=== PATIENT | male | born 1995 | race American Indian/Alaskan Native ===

== ENCOUNTER 2018-06-28 17:11 | Emergency (ER) | payer OTHER ==
[2018-06-28 17:41] VITALS: BP 138/86
[2018-06-28] MEDS ORDERED: IBUPROFEN PO ONE (21:31)
[2018-06-28] MEDS ORDERED: DELTASONE PO ONE (21:31)
[2018-06-28] MEDS ORDERED: PROVENTIL IH ONE ×2 (21:31→22:44)
[2018-06-28] MEDS ORDERED: BENADRYL PO ONE (21:31)
--- NOTE | 2018-06-28 22:34 | XRay Report ---
PROCEDURE: XR CHEST ROUTINE 2V TECHNIQUE: PA and lateral views of the chest HISTORY: cough fever COMPARISONS: None available FINDINGS: Cardiomediastinal silhouette is unremarkable. No pulmonary infiltrate, effusion, or pneumothorax. No acute osseous abnormality. IMPRESSION: No radiographic evidence of acute abnormality. This document is electronically signed by Roopa Kenyon MD., June 28 2018 10:32:23 PM ET
--- NOTE | 2018-06-28 22:49 | Emergency Department Report ---
- General Chief Complaint: Dyspnea/Respdistress Stated Complaint: SOB/SORE THROAT/COUGHING Time Seen by Provider: 06/28/18 21:31 Source: patient Mode of arrival: Ambulatory Limitations: No Limitations - History of Present Illness Initial Comments: Patient is a 22-year-old -[place] male with a history of bronchitis and presents for cough fever chills cough is productive green thick, symptoms are exacerbated by environmental exposure symptoms are relieved by nothing. MD Complaint: cough, sore throat, rhinorrhea, nasal congestion Onset/Timin -: week(s) Severity: moderate Severity scale (0 -10): 5 Consistency: constant Improves With: nothing Worsens With: activity Associated Symptoms: fever, chills, rhinorrhea, nasal congestion, sore throat, cough, shortness of breath Treatments Prior to Arrival: none - Related Data Previous Rx's Medication Instructions Recorded Last Taken Type Cetirizine HCl [ZyrTEC] 10 mg PO QAM 14 Days #14 capsule 04/20/18 Unknown Rx Fluticasone [Flonase] 1 spray NS QDAY 14 Days #1 bottle 04/20/18 Unknown Rx Ibuprofen [Motrin] 800 mg PO Q8HR PRN #12 tablet 04/20/18 Unknown Rx Ondansetron [Zofran ODT TAB] 8 mg PO Q8HR PRN #12 tab.rapdis 04/20/18 Unknown Rx Oseltamivir [Tamiflu] 75 mg PO BID 5 Days #10 cap 04/20/18 Unknown Rx ALBUTEROL NEB's [Proventil 0.083% 2.5 mg IH Q4H PRN #1 ml 06/28/18 Unknown Rx NEBS] Azithromycin [Zithromax Z-LEO] 250 mg PO DAILY #6 tab 06/28/18 Unknown Rx Benzonatate [Tessalon Perle] 100 mg PO TID PRN #30 capsule 06/28/18 Unknown Rx Ibuprofen 800 mg PO TID PRN #30 tablet 06/28/18 Unknown Rx predniSONE [Deltasone] 40 mg PO QDAY 5 Days #10 tab 06/28/18 Unknown Rx Allergies Allergy/AdvReac Type Severity Reaction Status Date / Time No Known Allergies Allergy Verified 06/28/18 17:35 ED Review of Systems ROS: Stated complaint: SOB/SORE THROAT/COUGHING Other details as noted in HPI Constitutional: denies: chills, fever Eyes: denies: eye pain, eye discharge, vision change ENT: ear pain, throat pain, congestion Respiratory: cough, wheezing. denies: shortness of breath Cardiovascular: denies: chest pain, palpitations Endocrine: no symptoms reported Gastrointestinal: denies: abdominal pain, nausea, diarrhea Genitourinary: denies: urgency, dysuria Musculoskeletal: denies: back pain, joint swelling, arthralgia Skin: denies: rash, lesions Neurological: denies: headache, weakness, paresthesias Psychiatric: denies: anxiety, depression Hematological/Lymphatic: denies: easy bleeding, easy bruising ED Past Medical Hx - Past Medical History Hx Asthma: Yes (childhood) - Social History Smoking Status: Current Every Day Smoker Substance Use Type: Alcohol, Marijuana - Medications Home Medications: Home Medications Medication Instructions Recorded Confirmed Last Taken Type Cetirizine HCl [ZyrTEC] 10 mg PO QAM 14 Days #14 capsule 04/20/18 Unknown Rx Fluticasone [Flonase] 1 spray NS QDAY 14 Days #1 bottle 04/20/18 Unknown Rx Ibuprofen [Motrin] 800 mg PO Q8HR PRN #12 tablet 04/20/18 Unknown Rx Ondansetron [Zofran ODT TAB] 8 mg PO Q8HR PRN #12 tab.rapdis 04/20/18 Unknown Rx Oseltamivir [Tamiflu] 75 mg PO BID 5 Days #10 cap 04/20/18 Unknown Rx ALBUTEROL NEB's [Proventil 0.083% 2.5 mg IH Q4H PRN #1 ml 06/28/18 Unknown Rx NEBS] Azithromycin [Zithromax Z-LEO] 250 mg PO DAILY #6 tab 06/28/18 Unknown Rx Benzonatate [Tessalon Perle] 100 mg PO TID PRN #30 capsule 06/28/18 Unknown Rx Ibuprofen 800 mg PO TID PRN #30 tablet 06/28/18 Unknown Rx predniSONE [Deltasone] 40 mg PO QDAY 5 Days #10 tab 06/28/18 Unknown Rx ED Physical Exam - General Limitations: No Limitations General appearance: alert, in no apparent distress - Head Head exam: Present: atraumatic, normocephalic - Eye Eye exam: Present: normal appearance, PERRL, EOMI Pupils: Present: normal accommodation - ENT ENT exam: Present: mucous membranes moist - Expanded ENT Exam Expanded Ear exam: Present: normal external inspection, other TM/Canal exam: Erythema: Right TM, Left TM Mouth exam: Absent: trismus Throat exam: Positive: tonsillar erythema, tonsillomegaly, other (uvula midline no exudate no lesions ). Negative: tonsillar exudate, R peritonsillar mass, L peritonsillar mass - Neck Neck exam: Present: normal inspection, full ROM. Absent: lymphadenopathy, thyromegaly - Respiratory Respiratory exam: Present: normal lung sounds bilaterally, wheezes. Absent: respiratory distress, rales, rhonchi, stridor, chest wall tenderness, prolonged expiratory - Expanded Respiratory Exam Expanded Location: Wheezes: Right, Left, Upper, Lower - Cardiovascular Cardiovascular Exam: Present: regular rate, normal rhythm. Absent: systolic murmur, diastolic murmur, rubs, gallop - GI/Abdominal GI/Abdominal exam: Present: soft, normal bowel sounds. Absent: tenderness, rebound, bruit, hernia - Rectal Rectal exam: Present: deferred - Extremities Exam Extremities exam: Present: normal inspection - Back Exam Back exam: Present: normal inspection, full ROM. Absent: tenderness, CVA tenderness (R), CVA tenderness (L), muscle spasm, rash noted - Neurological Exam Neurological exam: Present: alert, oriented X3, CN II-XII intact, normal gait - Psychiatric Psychiatric exam: Present: normal affect, normal mood - Skin Skin exam: Present: warm, dry, intact, normal color. Absent: rash ED Course Vital Signs 06/28/18 06/28/18 06/28/18 17:35 17:40 22:02 Temperature 98.7 F Pulse Rate 93 H Respiratory 20 16 Rate Blood Pressure 169/115 Blood Pressure 138/86 [Left] O2 Sat by Pulse 96 Oximetry ED Medical Decision Making - Radiology Data Radiology results: report reviewed, image reviewed oc: ED Attending Dr: Ordering Physician: ACACIA VÁZQUEZ NP Date of Service: 06/28/18 Procedure(s): XR chest routine 2V Accession Number(s): [id number] cc: ACACIA VÁZQUEZ NP Fluoro Time In Minutes: PROCEDURE: XR CHEST ROUTINE 2V TECHNIQUE: PA and lateral views of the chest HISTORY: cough fever COMPARISONS: None available FINDINGS: Cardiomediastinal silhouette is unremarkable. No pulmonary infiltrate, effusion, or pneumothorax. No acute osseous abnormality. IMPRESSION: No radiographic evidence of acute abnormality. This document is electronically signed by Roopa Mckeon MD., June 28 2018 10:32:23 PM ET Transcribed By: [facility] Dictated By: ROOAP MCKEON M.D. Electronically Authenticated By: ROOPA MCKEON M.D. Signed Date/Time: 06/28/182233 DD/ 01 TD/TT: 06/28/182201 - Medical Decision Making symptoms improved with medications given in ed , cxr: normal no infiltrates no opacities, plan: albuterol inhaler, prednisones, zpack ibuprofen, Tessalon pearls, follow up with pcp in 2-3 days pt verbalized agreement and understanding of same. pt for dc to home in stable condition at this time. Critical care attestation.: If time is entered above; I have spent that time in minutes in the direct care of this critically ill patient, excluding procedure time. ED Disposition Clinical Impression: Bronchitis URI (upper respiratory infection) Qualifiers: URI type: unspecified viral URI Qualified Code(s): J06.9 - Acute upper respiratory infection, unspecified Disposition: DC-01 TO HOME OR SELFCARE Is pt being admited?: No Does the pt Need Aspirin: No Condition: Stable Instructions: Acute Bronchitis (ED), Upper Respiratory Infection (ED) Prescriptions: predniSONE [Deltasone] 40 mg PO QDAY 5 Days #10 tab Ibuprofen 800 mg PO TID PRN #30 tablet PRN Reason: pain fever ALBUTEROL NEB's [Proventil 0.083% NEBS] 2.5 mg IH Q4H PRN #1 ml PRN Reason: shortness of breath wheezing Benzonatate [Tessalon Perle] 100 mg PO TID PRN #30 capsule PRN Reason: Cough Azithromycin [Zithromax Z-LEO] 250 mg PO DAILY #6 tab Referrals: [facility] [Outside] - 3-5 Days Forms: Work/School Release Form(ED) Time of Disposition: 23:58
== END 2018-06-29 00:10 | disposition home or self-care (01) ==
LOC: ED 17:11
DX: J40 Bronchitis, not specified as acute or chronic (principal); J06.9 Acute upper respiratory infection, unspecified; F17.200 Nicotine dependence, unspecified, uncomplicated; F12.10 Cannabis abuse, uncomplicated
CPT/HCPCS: 71046; 99283; J7512; 94640

== ENCOUNTER 2018-08-09 09:55 | Emergency (ER) | payer SELFPAY ==
[2018-08-09 10:03] VITALS: BP 161/112
[2018-08-09] MEDS ORDERED: ULTRAM PO ONE (11:08)
--- NOTE | 2018-08-09 11:47 | Emergency Department Report ---
ED Extremity Problem HPI - General Chief complaint: Extremity Injury, Lower Stated complaint: RT LEG PAIN Time Seen by Provider: 08/09/18 10:16 Source: patient Mode of arrival: Ambulatory Limitations: Physical Limitation - History of Present Illness Initial comments: Patient presents to the emergency department with a chief complaint of right knee pain that started yesterday afternoon. Patient states he was standing up and heard a pop in his right knee. Complains of pain in the front aspect of his knee. Denies any other pain or injuries. MD Complaint: extremity pain -: Sudden Location: right, lower extremity, knee History of Same: No Radiation: none Severity scale (0 -10): 5 Quality: sharp Consistency: constant Improves with: rest Worsens with: exertion Associated Symptoms: denies other symptoms - Related Data Previous Rx's Medication Instructions Recorded Last Taken Type Cetirizine HCl [ZyrTEC] 10 mg PO QAM 14 Days #14 capsule 04/20/18 Unknown Rx Fluticasone [Flonase] 1 spray NS QDAY 14 Days #1 bottle 04/20/18 Unknown Rx Ibuprofen [Motrin] 800 mg PO Q8HR PRN #12 tablet 04/20/18 Unknown Rx Ondansetron [Zofran ODT TAB] 8 mg PO Q8HR PRN #12 tab.rapdis 04/20/18 Unknown Rx Oseltamivir [Tamiflu] 75 mg PO BID 5 Days #10 cap 04/20/18 Unknown Rx ALBUTEROL NEB's [Proventil 0.083% 2.5 mg IH Q4H PRN #1 ml 06/28/18 Unknown Rx NEBS] Azithromycin [Zithromax Z-LEO] 250 mg PO DAILY #6 tab 06/28/18 Unknown Rx Benzonatate [Tessalon Perle] 100 mg PO TID PRN #30 capsule 06/28/18 Unknown Rx Ibuprofen [Ibuprofen 800] 800 mg PO TID PRN #30 tablet 06/28/18 Unknown Rx predniSONE [Deltasone] 40 mg PO QDAY 5 Days #10 tab 06/28/18 Unknown Rx Acetaminophen/Codeine [Tylenol 1 tab PO Q6H PRN #15 tab 08/09/18 Unknown Rx /Codeine # 3 tab] Ibuprofen [Motrin] 800 mg PO Q8HR PRN #30 tablet 08/09/18 Unknown Rx Allergies Allergy/AdvReac Type Severity Reaction Status Date / Time No Known Allergies Allergy Verified 08/09/18 09:56 ED Review of Systems ROS: Stated complaint: RT LEG PAIN Other details as noted in HPI Comment: All other systems reviewed and negative Constitutional: denies: chills, fever Eyes: denies: eye pain, eye discharge, vision change ENT: denies: ear pain, throat pain Respiratory: denies: cough, shortness of breath, wheezing Cardiovascular: denies: chest pain, palpitations Endocrine: no symptoms reported Gastrointestinal: denies: abdominal pain, nausea, diarrhea Genitourinary: denies: urgency, dysuria Musculoskeletal: denies: back pain, joint swelling, arthralgia Skin: denies: rash, lesions Neurological: denies: headache, weakness, paresthesias Psychiatric: denies: anxiety, depression Hematological/Lymphatic: denies: easy bleeding, easy bruising ED Past Medical Hx - Past Medical History Hx Asthma: Yes (childhood) - Social History Smoking Status: Current Every Day Smoker Substance Use Type: None - Medications Home Medications: Home Medications Medication Instructions Recorded Confirmed Last Taken Type Cetirizine HCl [ZyrTEC] 10 mg PO QAM 14 Days #14 capsule 04/20/18 Unknown Rx Fluticasone [Flonase] 1 spray NS QDAY 14 Days #1 bottle 04/20/18 Unknown Rx Ibuprofen [Motrin] 800 mg PO Q8HR PRN #12 tablet 04/20/18 Unknown Rx Ondansetron [Zofran ODT TAB] 8 mg PO Q8HR PRN #12 tab.rapdis 04/20/18 Unknown Rx Oseltamivir [Tamiflu] 75 mg PO BID 5 Days #10 cap 04/20/18 Unknown Rx ALBUTEROL NEB's [Proventil 0.083% 2.5 mg IH Q4H PRN #1 ml 06/28/18 Unknown Rx NEBS] Azithromycin [Zithromax Z-LEO] 250 mg PO DAILY #6 tab 06/28/18 Unknown Rx Benzonatate [Tessalon Perle] 100 mg PO TID PRN #30 capsule 06/28/18 Unknown Rx Ibuprofen [Ibuprofen 800] 800 mg PO TID PRN #30 tablet 06/28/18 Unknown Rx predniSONE [Deltasone] 40 mg PO QDAY 5 Days #10 tab 06/28/18 Unknown Rx Acetaminophen/Codeine [Tylenol 1 tab PO Q6H PRN #15 tab 08/09/18 Unknown Rx /Codeine # 3 tab] Ibuprofen [Motrin] 800 mg PO Q8HR PRN #30 tablet 08/09/18 Unknown Rx ED Physical Exam - General Limitations: Physical Limitation General appearance: alert, in no apparent distress - Head Head exam: Present: atraumatic, normocephalic - Eye Eye exam: Present: normal appearance, PERRL, EOMI - ENT ENT exam: Present: mucous membranes moist - Neck Neck exam: Present: normal inspection - Respiratory Respiratory exam: Present: normal lung sounds bilaterally. Absent: respiratory distress - Cardiovascular Cardiovascular Exam: Present: regular rate, normal rhythm. Absent: systolic murmur, diastolic murmur, rubs, gallop - Rectal Rectal exam: Present: deferred - Extremities Exam Extremities exam: Present: other (tenderness to palpation of the right patella; No tenderness along the meniscal line, right side) - Back Exam Back exam: Present: normal inspection - Neurological Exam Neurological exam: Present: alert, oriented X3, CN II-XII intact. Absent: motor sensory deficit - Psychiatric Psychiatric exam: Present: normal affect, normal mood - Skin Skin exam: Present: warm, dry, intact, normal color. Absent: rash ED Course Vital Signs 08/09/18 08/09/18 10:01 11:38 Temperature 98.0 F Pulse Rate 80 Respiratory 20 18 Rate Blood Pressure 161/112 O2 Sat by Pulse 100 Oximetry ED Medical Decision Making - Radiology Data Radiology results: report reviewed - Medical Decision Making Discussed results with patient leora wrapped applied Patient arrived with his own crutches Critical care attestation.: If time is entered above; I have spent that time in minutes in the direct care of this critically ill patient, excluding procedure time. ED Disposition Clinical Impression: Knee sprain, Knee effusion, right Disposition: DC-01 TO HOME OR SELFCARE Is pt being admited?: No Does the pt Need Aspirin: No Condition: Stable Instructions: Knee Pain (ED) Referrals: LUBNA TAYLOR MD [Primary Care Provider] - 3-5 Days [facility] [Provider Group] - 3-5 Days [facility] [Provider Group] - 3-5 Days CHARLES COLEMAN MD [Staff Physician] - 3-5 Days Time of Disposition: 12:09
--- NOTE | 2018-08-09 11:58 | XRay Report ---
RIGHT KNEE, 2 views: History: Pain. The bony architecture is intact without evidence of fracture or dislocation. No joint pathology is appreciated. Small joint effusion is suspected on the lateral image. IMPRESSION: Small joint effusion. No bony abnormality is appreciated.
== END 2018-08-09 12:23 | disposition home or self-care (01) ==
LOC: ED 09:55
DX: S83.91XA Sprain of unspecified site of right knee, initial encounter (principal); M25.461 Effusion, right knee; J45.909 Unspecified asthma, uncomplicated; F17.200 Nicotine dependence, unspecified, uncomplicated; X58.XXXA Exposure to other specified factors, initial encounter; Y93.89 Activity, other specified; Y92.89 Other specified places as the place of occurrence of the external cause; Y99.8 Other external cause status